=== PATIENT | male | born 1955 | race Caucasian/White ===

== ENCOUNTER 2023-05-12 10:21 | Inpatient (IN) | payer MEDICARE ==
[~2023-05-12] VITALS: Ht 182.9 cm; Wt 87.7 kg
[2023-05-12 12:58] LABS: HEMATOCRIT 47.4 % (42.0-52.0); HEMOGLOBIN 15.8 g/dl (13.5-17.5); MEAN CORPUSCULAR HGB CONC 33.3 g/dl (32.0-36.5); MEAN CORPUSCULAR VOLUME 90.1 fl (80.0-96.0); PLATELET COUNT, AUTOMATED 329 10^3/uL (150-450); RED BLOOD COUNT 5.26 10^6/uL (4.30-6.10); WHITE BLOOD COUNT 10.7 10^3/uL (4.0-10.0)
[2023-05-12 13:18] LABS: ETHYL ALCOHOL (ETHANOL) < 0.003 % (0.000-0.010)
[2023-05-12 13:20] LABS: ALKALINE PHOSPHATASE 81 U/L (46-116); ALT/SGPT 55 U/L (7.0-40); AST/SGOT 33 U/L (<34); BILIRUBIN,DIRECT 0.6 MG/DL (<0.4); BILIRUBIN,TOTAL 1.5 MG/DL (0.3-1.2); BLOOD UREA NITROGEN 29 MG/DL (9-23); CALCIUM LEVEL 9.9 MG/DL (8.3-10.6); CARBON DIOXIDE LEVEL 22 MMOL/L (20-31); CHLORIDE LEVEL 105 MMOL/L (98-107); GLOMERULAR FILTRATION RATE > 60.0 (>49); GLUCOSE, FASTING 158 MG/DL (74-106); POTASSIUM SERUM 4.6 MMOL/L (3.5-5.1); SALICYLATE LEVEL < 3.0 MG/DL (<30); SODIUM LEVEL 138 MMOL/L (136-145); TOTAL PROTEIN 7.5 G/DL (5.7-8.2)
[2023-05-12 13:23] LABS: THYROID STIMULATING HORMONE 1.406 uIU/ML (0.55-4.78)
[2023-05-12] MEDS ORDERED: MED REC IN PROGRESS XX SCH (15:35)
[2023-05-12] MEDS ORDERED: traZODone 50 MG TAB PO PRN (16:40)
[2023-05-12] MEDS ORDERED: MAALOX 30 ML SUSP *UDC PO PRN (16:40)
[2023-05-12] MEDS ORDERED: IBUPROFEN 400MG TAB PO PRN (16:40)
[2023-05-12] MEDS ORDERED: diphenhydrAMINE 25MG CAP PO PRN (16:40)
[2023-05-12] MEDS ORDERED: DEXTROSE 50% 50ML SYRINGE IV PRN (16:40)
[2023-05-12] MEDS ORDERED: GLUCOSE 4GM CHEW TABLET PO PRN (16:40)
[2023-05-12] MEDS ORDERED: MOM 30ML SUSPENSION UDC PO PRN (16:40)
[2023-05-12] MEDS ORDERED: GLUCAGON INJ 1MG VIAL SC PRN (16:40)
[2023-05-12] MEDS: INSULIN LISPRO (NovoLOG) PER UNIT SC SCH ×2 (17:30→21:00)
[2023-05-12 17:58] LABS: AMPHETAMINES LEVEL URINE NEGATIVE (NEGATIVE); BARBITURATES URINE NEGATIVE (NEGATIVE); COCAINE METABOLITE URINE NEGATIVE (NEGATIVE); METHADONE URINE NEGATIVE (NEGATIVE); OPIATES URINE NEGATIVE (NEGATIVE)
[2023-05-12 17:59] LABS: BENZODIAZEPINES URINE NEGATIVE (NEGATIVE); PHENCYCLIDINE URINE NEGATIVE (NEGATIVE)
[2023-05-12 18:02] LABS: CANNABINOIDS URINE POSITIVE (NEGATIVE)
[2023-05-12] MEDS ORDERED: SERTRALINE HCL 25 MG TABLET PO SCH (21:00)
[2023-05-13 06:57] VITALS: BP 128/64; TEMP 98.3; O2SAT 99
[2023-05-13] MEDS: INSULIN LISPRO (NovoLOG) PER UNIT SC SCH ×4 (06:59→21:00)
[2023-05-13] MEDS ORDERED: ATORVASTATIN 20 MG TAB PO SCH (09:00)
[2023-05-13] MEDS: NICOTINE 14 MG/24 HR TRANSDERMAL TD SCH (09:00)
[2023-05-13] MEDS ORDERED: JANU100T PO (09:57)
[2023-05-13] MEDS ORDERED: ROSU40TA4 PO (09:57)
[2023-05-13] MEDS ORDERED: LISI10TA22 PO (09:57)
[2023-05-13] MEDS ORDERED: SERT25TA21 PO (09:57)
[2023-05-13] MEDS ORDERED: METF-877 PO (09:57)
[2023-05-13] MEDS ORDERED: MED REC COMMENT (09:58)
[2023-05-13] MEDS ORDERED: HOME MED LIST COMPLETE! XX SCH (10:00)
[2023-05-13] MEDS: metFORMIN (GLUCOPHAGE) 1000MG TABLET PO SCH ×2 (10:29→17:21)
[2023-05-13] MEDS: ROSUVASTATIN 10 MG TAB (CRESTOR) PO SCH (10:29)
[2023-05-13] MEDS: SITagliptin 50 MG TAB (JANUVIA) PO SCH (10:49)
[2023-05-13 16:28] VITALS: BP 121/63; TEMP 98.7; O2SAT 99
[2023-05-13] MEDS: SERTRALINE HCL 25 MG TABLET PO SCH (21:20)
[2023-05-14 06:30] VITALS: BP 112/58; TEMP 98.9; O2SAT 97
[2023-05-14] MEDS: INSULIN LISPRO (NovoLOG) PER UNIT SC SCH ×4 (06:42→20:14)
[2023-05-14] MEDS: ROSUVASTATIN 10 MG TAB (CRESTOR) PO SCH (08:03)
[2023-05-14] MEDS: metFORMIN (GLUCOPHAGE) 1000MG TABLET PO SCH ×2 (08:03→17:10)
[2023-05-14] MEDS: SITagliptin 50 MG TAB (JANUVIA) PO SCH (08:03)
[2023-05-14] MEDS: NICOTINE 14 MG/24 HR TRANSDERMAL TD SCH (08:04)
[2023-05-14 16:31] VITALS: BP 106/60; TEMP 98.1; O2SAT 100
[2023-05-14] MEDS: ACETAMINOPHEN TAB 650MG DOSE (2X325MG) PO PRN (20:10)
[2023-05-14] MEDS: SERTRALINE HCL 25 MG TABLET PO SCH (20:10)
[2023-05-15 05:37] VITALS: BP 111/55; TEMP 98; O2SAT 99
[2023-05-15] MEDS: INSULIN LISPRO (NovoLOG) PER UNIT SC SCH ×4 (06:52→20:08)
[2023-05-15 08:35] VITALS: BP 144/74
[2023-05-15] MEDS: metFORMIN (GLUCOPHAGE) 1000MG TABLET PO SCH ×2 (08:36→17:00)
[2023-05-15] MEDS: SITagliptin 50 MG TAB (JANUVIA) PO SCH (08:36)
[2023-05-15] MEDS: ROSUVASTATIN 10 MG TAB (CRESTOR) PO SCH (08:36)
[2023-05-15] MEDS: NICOTINE 14 MG/24 HR TRANSDERMAL TD SCH (08:37)
[2023-05-15] MEDS: SERTRALINE HCL 25 MG TABLET PO SCH (20:08)
[2023-05-15] MEDS: QUEtiapine FUMARATE 25 MG TAB PO SCH (20:08)
[2023-05-16 06:18] VITALS: BP 144/80; TEMP 97.2; O2SAT 98
[2023-05-16] MEDS: INSULIN LISPRO (NovoLOG) PER UNIT SC SCH ×4 (06:38→20:08)
[2023-05-16] MEDS: metFORMIN (GLUCOPHAGE) 1000MG TABLET PO SCH ×2 (08:03→17:07)
[2023-05-16] MEDS: SITagliptin 50 MG TAB (JANUVIA) PO SCH (08:04)
[2023-05-16] MEDS: ROSUVASTATIN 10 MG TAB (CRESTOR) PO SCH (08:04)
[2023-05-16] MEDS: NICOTINE 14 MG/24 HR TRANSDERMAL TD SCH (08:08)
[2023-05-16 16:25] VITALS: BP 134/68; TEMP 98; O2SAT 100
[2023-05-16] MEDS: SERTRALINE HCL 25 MG TABLET PO SCH (20:08)
[2023-05-16] MEDS: QUEtiapine FUMARATE 25 MG TAB PO SCH (20:08)
[2023-05-17 06:30] VITALS: BP 130/59; TEMP 98; O2SAT 99
[2023-05-17] MEDS: INSULIN LISPRO (NovoLOG) PER UNIT SC SCH ×4 (06:34→20:11)
[2023-05-17] MEDS: ROSUVASTATIN 10 MG TAB (CRESTOR) PO SCH (07:46)
[2023-05-17] MEDS: metFORMIN (GLUCOPHAGE) 1000MG TABLET PO SCH ×2 (07:46→17:05)
[2023-05-17] MEDS: SITagliptin 50 MG TAB (JANUVIA) PO SCH (07:46)
[2023-05-17] MEDS: NICOTINE 14 MG/24 HR TRANSDERMAL TD SCH (07:50)
[2023-05-17] MEDS ORDERED: PILL CUTTER 1 EACH XX PRN (10:45)
[2023-05-17] MEDS: FAMOTIDINE 20 MG TAB PO SCH (10:48)
[2023-05-17 15:59] VITALS: BP 135/62; TEMP 98.3; O2SAT 100
[2023-05-17] MEDS: SERTRALINE HCL 25 MG TABLET PO SCH (20:09)
[2023-05-17] MEDS: QUEtiapine FUMARATE 25 MG TAB PO SCH (20:09)
[2023-05-18 06:33] VITALS: BP 134/67; TEMP 97.8; O2SAT 99
[2023-05-18] MEDS: INSULIN LISPRO (NovoLOG) PER UNIT SC SCH ×4 (06:34→20:22)
[2023-05-18] MEDS: ROSUVASTATIN 10 MG TAB (CRESTOR) PO SCH (07:46)
[2023-05-18] MEDS: metFORMIN (GLUCOPHAGE) 1000MG TABLET PO SCH ×2 (07:46→17:04)
[2023-05-18] MEDS: FAMOTIDINE 20 MG TAB PO SCH (07:46)
[2023-05-18] MEDS: SITagliptin 50 MG TAB (JANUVIA) PO SCH (07:46)
[2023-05-18] MEDS: NICOTINE 14 MG/24 HR TRANSDERMAL TD SCH (07:49)
[2023-05-18] MEDS ORDERED: NICOTINE 14 MG/24 HR TRANSDERMAL TD PRN (09:35)
[2023-05-18 16:17] VITALS: BP 150/69; TEMP 97.4; O2SAT 100
[2023-05-18] MEDS: SERTRALINE HCL 25 MG TABLET PO SCH (20:21)
[2023-05-18] MEDS: QUEtiapine FUMARATE 25 MG TAB PO SCH (20:21)
[2023-05-19 06:18] VITALS: BP 134/60; TEMP 97.3; O2SAT 99
[2023-05-19] MEDS: INSULIN LISPRO (NovoLOG) PER UNIT SC SCH ×4 (06:38→20:08)
[2023-05-19] MEDS: SITagliptin 50 MG TAB (JANUVIA) PO SCH (08:02)
[2023-05-19] MEDS: ROSUVASTATIN 10 MG TAB (CRESTOR) PO SCH (08:03)
[2023-05-19] MEDS: metFORMIN (GLUCOPHAGE) 1000MG TABLET PO SCH ×2 (08:03→17:05)
[2023-05-19] MEDS: FAMOTIDINE 20 MG TAB PO SCH (08:03)
[2023-05-19] MEDS: PILL CUTTER 1 EACH XX PRN (08:03)
[2023-05-19 18:07] VITALS: BP 148/65; TEMP 97.8
[2023-05-19] MEDS: SERTRALINE HCL 25 MG TABLET PO SCH (20:07)
[2023-05-19] MEDS: QUEtiapine FUMARATE 25 MG TAB PO SCH (20:08)
[2023-05-20 06:28] VITALS: BP 133/61; TEMP 97.7; O2SAT 98
[2023-05-20] MEDS: INSULIN LISPRO (NovoLOG) PER UNIT SC SCH ×4 (06:40→20:07)
[2023-05-20] MEDS: SITagliptin 50 MG TAB (JANUVIA) PO SCH (08:22)
[2023-05-20] MEDS: metFORMIN (GLUCOPHAGE) 1000MG TABLET PO SCH ×2 (08:23→17:06)
[2023-05-20 08:24] VITALS: BP 150/68
[2023-05-20] MEDS: ROSUVASTATIN 10 MG TAB (CRESTOR) PO SCH (08:26)
[2023-05-20] MEDS: FAMOTIDINE 20 MG TAB PO SCH (08:27)
[2023-05-20] MEDS: PILL CUTTER 1 EACH XX PRN (08:27)
[2023-05-20 17:59] VITALS: BP 136/70; TEMP 97.3; O2SAT 100
[2023-05-20] MEDS: QUEtiapine FUMARATE 25 MG TAB PO SCH (20:08)
[2023-05-20] MEDS: SERTRALINE HCL 25 MG TABLET PO SCH (20:08)
[2023-05-21 06:35] VITALS: BP 141/65; TEMP 97.8; O2SAT 98
[2023-05-21] MEDS: INSULIN LISPRO (NovoLOG) PER UNIT SC SCH ×4 (07:21→20:28)
[2023-05-21] MEDS: metFORMIN (GLUCOPHAGE) 1000MG TABLET PO SCH ×2 (08:01→17:06)
[2023-05-21] MEDS: ROSUVASTATIN 10 MG TAB (CRESTOR) PO SCH (08:01)
[2023-05-21] MEDS: SITagliptin 50 MG TAB (JANUVIA) PO SCH (08:02)
[2023-05-21] MEDS: FAMOTIDINE 20 MG TAB PO SCH (08:03)
[2023-05-21] MEDS ORDERED: LOPERAMIDE 2 MG CAPLET PO ONE (11:30)
[2023-05-21 16:20] VITALS: BP 162/72; TEMP 96.7; O2SAT 100
[2023-05-21] MEDS: SERTRALINE HCL 25 MG TABLET PO SCH (20:27)
[2023-05-21] MEDS: QUEtiapine FUMARATE 25 MG TAB PO SCH (20:27)
[2023-05-22] MEDS: LOPERAMIDE 2 MG CAPLET PO PRN ×2 (05:32→17:52)
[2023-05-22 06:24] VITALS: BP 136/62; TEMP 99.6; O2SAT 100
[2023-05-22] MEDS: INSULIN LISPRO (NovoLOG) PER UNIT SC SCH ×4 (06:34→20:06)
[2023-05-22] MEDS: ROSUVASTATIN 10 MG TAB (CRESTOR) PO SCH (07:43)
[2023-05-22] MEDS: metFORMIN (GLUCOPHAGE) 1000MG TABLET PO SCH ×2 (07:43→17:40)
[2023-05-22] MEDS: FAMOTIDINE 20 MG TAB PO SCH (07:44)
[2023-05-22] MEDS: SITagliptin 50 MG TAB (JANUVIA) PO SCH (07:44)
[2023-05-22 18:32] VITALS: BP 171/80; TEMP 97.5; O2SAT 99
[2023-05-22] MEDS: QUEtiapine FUMARATE 25 MG TAB PO SCH (20:03)
[2023-05-22] MEDS: SERTRALINE HCL 25 MG TABLET PO SCH (20:03)
[2023-05-23] MEDS: INSULIN LISPRO (NovoLOG) PER UNIT SC SCH ×4 (06:40→20:07)
[2023-05-23 07:02] VITALS: BP 128/65; TEMP 97.2; O2SAT 99
[2023-05-23 08:08] VITALS: BP 153/73
[2023-05-23] MEDS: ROSUVASTATIN 10 MG TAB (CRESTOR) PO SCH (08:08)
[2023-05-23] MEDS: LOPERAMIDE 2 MG CAPLET PO PRN (08:08)
[2023-05-23] MEDS: metFORMIN (GLUCOPHAGE) 1000MG TABLET PO SCH ×2 (08:08→17:01)
[2023-05-23 08:09] VITALS: BP 153/73
[2023-05-23] MEDS: PILL CUTTER 1 EACH XX PRN (08:09)
[2023-05-23] MEDS: SITagliptin 50 MG TAB (JANUVIA) PO SCH (08:09)
[2023-05-23] MEDS: FAMOTIDINE 20 MG TAB PO SCH (08:09)
[2023-05-23 13:25] LABS: IONIZED CALCIUM 5.3 MG/DL (4.5-5.3)
[2023-05-23 13:39] LABS: BASO # 0.1 10^3/uL (0.0-0.2); BASO % 0.8 % (0.0-1.0); EOS # 0.2 10^3/uL (0.0-0.5); EOS % 1.7 % (0.0-3.0); HEMOGLOBIN 14.5 g/dl (13.5-17.5); LYMPH # 2.5 10^3/uL (1.5-5.0); MEAN CORPUSCULAR HEMOGLOBIN 29.9 pg (27.0-33.0); MEAN CORPUSCULAR HGB CONC 32.2 g/dl (32.0-36.5); MEAN CORPUSCULAR VOLUME 92.8 fl (80.0-96.0); MONO # 0.7 10^3/uL (0.0-0.8); MONO % 7.7 % (2.0-8.0); NEUTROPHILS # 6.1 10^3/uL (1.5-8.5); NEUTROPHILS % 62.9 % (36.0-66.0); PLATELET COUNT, AUTOMATED 258 10^3/uL (150-450); RED BLOOD COUNT 4.85 10^6/uL (4.30-6.10); WHITE BLOOD COUNT 9.7 10^3/uL (4.0-10.0)
[2023-05-23 14:00] LABS: C REACTIVE PROTEIN QUANTITATIV < 0.40 MG/DL (<1.0)
[2023-05-23 14:02] LABS: ALBUMIN 3.8 G/DL (3.2-5.2); ALKALINE PHOSPHATASE 61 U/L (46-116); ALT/SGPT 49 U/L (7.0-40); AST/SGOT 29 U/L (<34); BILIRUBIN,TOTAL 0.5 MG/DL (0.3-1.2); BLOOD UREA NITROGEN 30 MG/DL (9-23); CALCIUM LEVEL 9.3 MG/DL (8.3-10.6); CARBON DIOXIDE LEVEL 18 MMOL/L (20-31); CHLORIDE LEVEL 112 MMOL/L (98-107); CREATININE FOR GFR 0.94 MG/DL (0.70-1.30); GLOMERULAR FILTRATION RATE > 60.0 (>49); GLUCOSE, FASTING 260 MG/DL (74-106); MAGNESIUM LEVEL 1.7 MG/DL (1.8-2.4); POTASSIUM SERUM 5.2 MMOL/L (3.5-5.1); SODIUM LEVEL 138 MMOL/L (136-145)
[2023-05-23 14:07] LABS: ERYTHROCYTE SEDIMENTATION RATE 18 mm/hr (0-20)
[2023-05-23] MEDS ORDERED: LOPERAMIDE 2 MG CAPLET PO PRN (14:10)
[2023-05-23 14:12] LABS: PROCALCITONIN <0.04 ng/ml
[2023-05-23] MEDS ORDERED: MAGNESIUM OXIDE 400MG TAB (MAG-OX) PO ONE (15:30)
[2023-05-23] MEDS ORDERED: PATIROMER SORBITEX CALCIUM 8.4 GM POWDER PACKET (VELTASSA) PO ONE (17:00)
[2023-05-23 18:53] VITALS: BP 132/95; TEMP 97.6
[2023-05-23] MEDS: SERTRALINE HCL 25 MG TABLET PO SCH (20:08)
[2023-05-23] MEDS: MAGNESIUM OXIDE 400MG TAB (MAG-OX) PO SCH (20:08)
[2023-05-23] MEDS: QUEtiapine FUMARATE 25 MG TAB PO SCH (20:08)
[2023-05-23] MEDS: SODIUM BICARBONATE 325 MG TAB PO SCH (20:08)
[2023-05-23 22:02] LABS: BLOOD UREA NITROGEN 34 MG/DL (9-23); CALCIUM LEVEL 9.8 MG/DL (8.3-10.6); CARBON DIOXIDE LEVEL 18 MMOL/L (20-31); CHLORIDE LEVEL 111 MMOL/L (98-107); CREATININE FOR GFR 1.08 MG/DL (0.70-1.30); GLOMERULAR FILTRATION RATE > 60.0 (>49); GLUCOSE, FASTING 174 MG/DL (74-106); MAGNESIUM LEVEL 1.7 MG/DL (1.8-2.4); POTASSIUM SERUM 4.6 MMOL/L (3.5-5.1); SODIUM LEVEL 137 MMOL/L (136-145)
[2023-05-24 06:08] VITALS: BP 154/80; TEMP 98.3; O2SAT 99
[2023-05-24] MEDS: INSULIN LISPRO (NovoLOG) PER UNIT SC SCH ×4 (06:30→20:07)
[2023-05-24] MEDS: SITagliptin 50 MG TAB (JANUVIA) PO SCH (08:37)
[2023-05-24] MEDS: metFORMIN (GLUCOPHAGE) 1000MG TABLET PO SCH ×2 (08:37→17:41)
[2023-05-24] MEDS: FAMOTIDINE 20 MG TAB PO SCH (08:38)
[2023-05-24] MEDS: SODIUM BICARBONATE 325 MG TAB PO SCH ×2 (08:38→20:10)
[2023-05-24] MEDS: MAGNESIUM OXIDE 400MG TAB (MAG-OX) PO SCH ×3 (08:39→20:10)
[2023-05-24] MEDS: ROSUVASTATIN 10 MG TAB (CRESTOR) PO SCH (08:39)
[2023-05-24] MEDS: PILL CUTTER 1 EACH XX PRN (08:39)
[2023-05-24 18:21] VITALS: BP 153/91; TEMP 97.1; O2SAT 100
[2023-05-24] MEDS: SERTRALINE HCL 25 MG TABLET PO SCH (20:10)
[2023-05-24] MEDS: QUEtiapine FUMARATE 25 MG TAB PO SCH (20:10)
[2023-05-25 06:26] VITALS: BP 129/64; TEMP 98.8; O2SAT 99
[2023-05-25] MEDS: INSULIN LISPRO (NovoLOG) PER UNIT SC SCH ×4 (06:36→21:00)
[2023-05-25] MEDS: SODIUM BICARBONATE 325 MG TAB PO SCH ×2 (08:50→20:08)
[2023-05-25] MEDS: metFORMIN (GLUCOPHAGE) 1000MG TABLET PO SCH ×2 (08:50→17:25)
[2023-05-25] MEDS: ROSUVASTATIN 10 MG TAB (CRESTOR) PO SCH (08:51)
[2023-05-25] MEDS: SITagliptin 50 MG TAB (JANUVIA) PO SCH (08:51)
[2023-05-25] MEDS: MAGNESIUM OXIDE 400MG TAB (MAG-OX) PO SCH ×3 (08:51→20:09)
[2023-05-25] MEDS: FAMOTIDINE 20 MG TAB PO SCH (08:54)
[2023-05-25 13:59] LABS: BLOOD UREA NITROGEN 28 MG/DL (9-23); CALCIUM LEVEL 9.1 MG/DL (8.3-10.6); CARBON DIOXIDE LEVEL 21 MMOL/L (20-31); CHLORIDE LEVEL 110 MMOL/L (98-107); CREATININE FOR GFR 0.85 MG/DL (0.70-1.30); GLOMERULAR FILTRATION RATE > 60.0 (>49); GLUCOSE, FASTING 168 MG/DL (74-106); MAGNESIUM LEVEL 1.9 MG/DL (1.8-2.4); POTASSIUM SERUM 4.9 MMOL/L (3.5-5.1); SODIUM LEVEL 139 MMOL/L (136-145)
[2023-05-25 18:00] VITALS: BP 151/70; TEMP 98.6; O2SAT 100
[2023-05-25] MEDS: SERTRALINE HCL 25 MG TABLET PO SCH (20:08)
[2023-05-25] MEDS: QUEtiapine FUMARATE 25 MG TAB PO SCH (20:09)
[2023-05-26 06:38] VITALS: BP 113/58; TEMP 97.9; O2SAT 99
[2023-05-26] MEDS: INSULIN LISPRO (NovoLOG) PER UNIT SC SCH ×4 (06:38→20:19)
[2023-05-26] MEDS: MAGNESIUM OXIDE 400MG TAB (MAG-OX) PO SCH ×3 (08:37→20:13)
[2023-05-26] MEDS: SITagliptin 50 MG TAB (JANUVIA) PO SCH (08:37)
[2023-05-26] MEDS: ROSUVASTATIN 10 MG TAB (CRESTOR) PO SCH (08:37)
[2023-05-26] MEDS: FAMOTIDINE 20 MG TAB PO SCH (08:37)
[2023-05-26] MEDS: metFORMIN (GLUCOPHAGE) 1000MG TABLET PO SCH ×2 (08:37→17:02)
[2023-05-26] MEDS: SODIUM BICARBONATE 325 MG TAB PO SCH ×2 (08:37→20:16)
[2023-05-26 18:17] VITALS: BP 146/79; TEMP 96.8; O2SAT 100
[2023-05-26] MEDS: SERTRALINE HCL 25 MG TABLET PO SCH (20:13)
[2023-05-26] MEDS: QUEtiapine FUMARATE 25 MG TAB PO SCH (20:13)
[2023-05-27] MEDS: INSULIN LISPRO (NovoLOG) PER UNIT SC SCH ×4 (06:35→20:00)
[2023-05-27 06:43] VITALS: BP 147/69; TEMP 98.3; O2SAT 100
[2023-05-27] MEDS: MAGNESIUM OXIDE 400MG TAB (MAG-OX) PO SCH ×3 (08:37→20:00)
[2023-05-27] MEDS: SITagliptin 50 MG TAB (JANUVIA) PO SCH (08:37)
[2023-05-27] MEDS: FAMOTIDINE 20 MG TAB PO SCH (08:38)
[2023-05-27] MEDS: SODIUM BICARBONATE 325 MG TAB PO SCH ×2 (08:38→19:59)
[2023-05-27] MEDS: ROSUVASTATIN 10 MG TAB (CRESTOR) PO SCH (08:38)
[2023-05-27] MEDS: metFORMIN (GLUCOPHAGE) 1000MG TABLET PO SCH ×2 (08:38→17:07)
[2023-05-27] MEDS: PILL CUTTER 1 EACH XX PRN (08:41)
[2023-05-27 16:10] VITALS: BP 126/70; TEMP 98; O2SAT 100
[2023-05-27] MEDS: SERTRALINE HCL 25 MG TABLET PO SCH (19:59)
[2023-05-27] MEDS: QUEtiapine FUMARATE 25 MG TAB PO SCH (20:00)
[2023-05-28] MEDS: INSULIN LISPRO (NovoLOG) PER UNIT SC SCH ×4 (06:30→20:10)
[2023-05-28 06:48] VITALS: BP 139/78; TEMP 97.3; O2SAT 96
[2023-05-28] MEDS: SODIUM BICARBONATE 325 MG TAB PO SCH ×2 (08:10→20:10)
[2023-05-28] MEDS: FAMOTIDINE 20 MG TAB PO SCH (08:11)
[2023-05-28] MEDS: SITagliptin 50 MG TAB (JANUVIA) PO SCH (08:11)
[2023-05-28] MEDS: metFORMIN (GLUCOPHAGE) 1000MG TABLET PO SCH ×2 (08:11→17:01)
[2023-05-28] MEDS: ROSUVASTATIN 10 MG TAB (CRESTOR) PO SCH (08:11)
[2023-05-28] MEDS: PILL CUTTER 1 EACH XX PRN (08:11)
[2023-05-28] MEDS: MAGNESIUM OXIDE 400MG TAB (MAG-OX) PO SCH ×3 (08:12→20:11)
[2023-05-28 16:09] VITALS: BP 154/69; TEMP 98.6; O2SAT 100
[2023-05-28 16:12] LABS: Chitobioside Carbohydrat (ACCA 6 units (0-90); Laminaribioside Carbohyd (ALCA 4 units (0-60); Mannobioside Carbohydrat (AMCA 14 units (0-100); Saccharomyces cerevisiae IgG A 23 units (0-50)
[2023-05-28] MEDS: SERTRALINE HCL 25 MG TABLET PO SCH (20:10)
[2023-05-28] MEDS: QUEtiapine FUMARATE 25 MG TAB PO SCH (20:11)
[2023-05-29 06:40] VITALS: BP 145/66; TEMP 98.9; O2SAT 99
[2023-05-29] MEDS: INSULIN LISPRO (NovoLOG) PER UNIT SC SCH ×4 (06:50→20:12)
[2023-05-29] MEDS: SITagliptin 50 MG TAB (JANUVIA) PO SCH (08:13)
[2023-05-29] MEDS: MAGNESIUM OXIDE 400MG TAB (MAG-OX) PO SCH ×3 (08:13→20:11)
[2023-05-29] MEDS: metFORMIN (GLUCOPHAGE) 1000MG TABLET PO SCH ×2 (08:13→17:05)
[2023-05-29] MEDS: ROSUVASTATIN 10 MG TAB (CRESTOR) PO SCH (08:13)
[2023-05-29] MEDS: SODIUM BICARBONATE 325 MG TAB PO SCH ×2 (08:14→20:10)
[2023-05-29] MEDS: PILL CUTTER 1 EACH XX PRN (08:14)
[2023-05-29] MEDS: FAMOTIDINE 20 MG TAB PO SCH (08:14)
[2023-05-29 18:01] VITALS: BP 149/74; TEMP 98.7; O2SAT 96
[2023-05-29] MEDS: QUEtiapine FUMARATE 25 MG TAB PO SCH (20:10)
[2023-05-29] MEDS: SERTRALINE HCL 25 MG TABLET PO SCH (20:10)
[2023-05-30 06:29] VITALS: BP 115/61; TEMP 97.5; O2SAT 98
[2023-05-30] MEDS: INSULIN LISPRO (NovoLOG) PER UNIT SC SCH ×4 (06:34→20:06)
[2023-05-30] MEDS: PILL CUTTER 1 EACH XX PRN (08:14)
[2023-05-30] MEDS: metFORMIN (GLUCOPHAGE) 1000MG TABLET PO SCH ×2 (08:14→17:10)
[2023-05-30] MEDS: ROSUVASTATIN 10 MG TAB (CRESTOR) PO SCH (08:14)
[2023-05-30] MEDS: MAGNESIUM OXIDE 400MG TAB (MAG-OX) PO SCH ×3 (08:15→20:06)
[2023-05-30] MEDS: FAMOTIDINE 20 MG TAB PO SCH (08:15)
[2023-05-30] MEDS: SITagliptin 50 MG TAB (JANUVIA) PO SCH (08:15)
[2023-05-30] MEDS: SODIUM BICARBONATE 325 MG TAB PO SCH ×2 (08:15→20:02)
[2023-05-30 16:28] VITALS: BP 144/65; TEMP 98.9; O2SAT 94
[2023-05-30] MEDS: SERTRALINE HCL 25 MG TABLET PO SCH (20:02)
[2023-05-30] MEDS: QUEtiapine FUMARATE 25 MG TAB PO SCH (20:02)
[2023-05-31] MEDS: INSULIN LISPRO (NovoLOG) PER UNIT SC SCH ×4 (06:34→21:00)
[2023-05-31 06:36] VITALS: BP 122/62; TEMP 97.8; O2SAT 99
[2023-05-31] MEDS: MAGNESIUM OXIDE 400MG TAB (MAG-OX) PO SCH ×3 (08:25→20:09)
[2023-05-31] MEDS: ROSUVASTATIN 10 MG TAB (CRESTOR) PO SCH (08:25)
[2023-05-31] MEDS: FAMOTIDINE 20 MG TAB PO SCH (08:25)
[2023-05-31] MEDS: metFORMIN (GLUCOPHAGE) 1000MG TABLET PO SCH ×2 (08:25→17:06)
[2023-05-31] MEDS: SITagliptin 50 MG TAB (JANUVIA) PO SCH (08:26)
[2023-05-31] MEDS: PILL CUTTER 1 EACH XX PRN (08:26)
[2023-05-31] MEDS: SODIUM BICARBONATE 325 MG TAB PO SCH ×2 (08:26→20:09)
[2023-05-31 16:10] VITALS: BP 139/64; TEMP 98.3; O2SAT 98
[2023-05-31] MEDS: QUEtiapine FUMARATE 25 MG TAB PO SCH (20:09)
[2023-05-31] MEDS: SERTRALINE HCL 25 MG TABLET PO SCH (20:09)
[2023-06-01 06:29] VITALS: BP 138/65; TEMP 97.9; O2SAT 98
[2023-06-01] MEDS: INSULIN LISPRO (NovoLOG) PER UNIT SC SCH ×4 (06:38→20:48)
[2023-06-01] MEDS: PILL CUTTER 1 EACH XX PRN (08:28)
[2023-06-01] MEDS: metFORMIN (GLUCOPHAGE) 1000MG TABLET PO SCH ×2 (08:28→17:06)
[2023-06-01] MEDS: FAMOTIDINE 20 MG TAB PO SCH (08:28)
[2023-06-01] MEDS: SODIUM BICARBONATE 325 MG TAB PO SCH ×2 (08:28→20:47)
[2023-06-01] MEDS: ROSUVASTATIN 10 MG TAB (CRESTOR) PO SCH (08:28)
[2023-06-01] MEDS: MAGNESIUM OXIDE 400MG TAB (MAG-OX) PO SCH ×3 (08:28→20:48)
[2023-06-01] MEDS: SITagliptin 50 MG TAB (JANUVIA) PO SCH (08:28)
[2023-06-01 15:25] VITALS: BP 150/70; TEMP 98.3; O2SAT 96
[2023-06-01] MEDS: QUEtiapine FUMARATE 25 MG TAB PO SCH (20:48)
[2023-06-01] MEDS: SERTRALINE HCL 25 MG TABLET PO SCH (20:48)
[2023-06-02 06:20] VITALS: BP 145/65; TEMP 96.9; O2SAT 99
[2023-06-02] MEDS: INSULIN LISPRO (NovoLOG) PER UNIT SC SCH ×4 (06:54→20:09)
[2023-06-02] MEDS: SITagliptin 50 MG TAB (JANUVIA) PO SCH (08:37)
[2023-06-02] MEDS: SODIUM BICARBONATE 325 MG TAB PO SCH ×2 (08:38→20:08)
[2023-06-02] MEDS: FAMOTIDINE 20 MG TAB PO SCH (08:38)
[2023-06-02] MEDS: PILL CUTTER 1 EACH XX PRN (08:38)
[2023-06-02] MEDS: metFORMIN (GLUCOPHAGE) 1000MG TABLET PO SCH ×2 (08:38→17:12)
[2023-06-02] MEDS: ROSUVASTATIN 10 MG TAB (CRESTOR) PO SCH (08:39)
[2023-06-02] MEDS: MAGNESIUM OXIDE 400MG TAB (MAG-OX) PO SCH ×3 (08:39→20:08)
[2023-06-02 18:16] VITALS: BP 150/80; TEMP 98.5; O2SAT 100
[2023-06-02] MEDS: QUEtiapine FUMARATE 25 MG TAB PO SCH (20:08)
[2023-06-02] MEDS: SERTRALINE HCL 25 MG TABLET PO SCH (20:08)
[2023-06-03 06:11] VITALS: BP 125/58; TEMP 97.4; O2SAT 99
[2023-06-03] MEDS: INSULIN LISPRO (NovoLOG) PER UNIT SC SCH ×4 (07:06→20:16)
[2023-06-03] MEDS: metFORMIN (GLUCOPHAGE) 1000MG TABLET PO SCH ×2 (08:14→17:03)
[2023-06-03] MEDS: MAGNESIUM OXIDE 400MG TAB (MAG-OX) PO SCH ×3 (08:14→20:13)
[2023-06-03] MEDS: PILL CUTTER 1 EACH XX PRN (08:15)
[2023-06-03] MEDS: ROSUVASTATIN 10 MG TAB (CRESTOR) PO SCH (08:15)
[2023-06-03] MEDS: FAMOTIDINE 20 MG TAB PO SCH (08:15)
[2023-06-03] MEDS: SITagliptin 50 MG TAB (JANUVIA) PO SCH (08:15)
[2023-06-03] MEDS: SODIUM BICARBONATE 325 MG TAB PO SCH ×2 (08:15→20:14)
[2023-06-03] MEDS: SERTRALINE HCL 25 MG TABLET PO SCH (11:58)
[2023-06-03 18:39] VITALS: BP 142/68; TEMP 98.2; O2SAT 100
[2023-06-03] MEDS: QUEtiapine FUMARATE 25 MG TAB PO SCH (20:14)
[2023-06-04 06:23] VITALS: BP 154/72; TEMP 97.1; O2SAT 98
[2023-06-04] MEDS: INSULIN LISPRO (NovoLOG) PER UNIT SC SCH ×4 (06:42→20:15)
[2023-06-04] MEDS: ROSUVASTATIN 10 MG TAB (CRESTOR) PO SCH (07:59)
[2023-06-04] MEDS: SODIUM BICARBONATE 325 MG TAB PO SCH ×2 (07:59→20:14)
[2023-06-04] MEDS: MAGNESIUM OXIDE 400MG TAB (MAG-OX) PO SCH ×3 (07:59→20:14)
[2023-06-04] MEDS: SERTRALINE HCL 25 MG TABLET PO SCH (08:00)
[2023-06-04] MEDS: metFORMIN (GLUCOPHAGE) 1000MG TABLET PO SCH ×2 (08:00→17:08)
[2023-06-04] MEDS: FAMOTIDINE 20 MG TAB PO SCH (08:00)
[2023-06-04] MEDS: SITagliptin 50 MG TAB (JANUVIA) PO SCH (08:00)
[2023-06-04 15:50] VITALS: BP 131/63; TEMP 97.1; O2SAT 100
[2023-06-04 15:51] VITALS: BP 137/82; TEMP 97.6; O2SAT 93
[2023-06-04] MEDS: QUEtiapine FUMARATE 25 MG TAB PO SCH (20:13)
[2023-06-05] MEDS: INSULIN LISPRO (NovoLOG) PER UNIT SC SCH ×5 (06:32→20:08)
[2023-06-05 06:33] VITALS: BP 141/68; TEMP 98.6; O2SAT 98
[2023-06-05] MEDS: FAMOTIDINE 20 MG TAB PO SCH (08:02)
[2023-06-05] MEDS: metFORMIN (GLUCOPHAGE) 1000MG TABLET PO SCH ×2 (08:02→17:25)
[2023-06-05] MEDS: ROSUVASTATIN 10 MG TAB (CRESTOR) PO SCH (08:02)
[2023-06-05] MEDS: MAGNESIUM OXIDE 400MG TAB (MAG-OX) PO SCH ×3 (08:02→20:05)
[2023-06-05] MEDS: SITagliptin 50 MG TAB (JANUVIA) PO SCH (08:03)
[2023-06-05] MEDS: SODIUM BICARBONATE 325 MG TAB PO SCH ×2 (08:03→20:05)
[2023-06-05] MEDS: PILL CUTTER 1 EACH XX PRN (08:03)
[2023-06-05] MEDS: SERTRALINE HCL 25 MG TABLET PO SCH (08:03)
[2023-06-05] MEDS ORDERED: FAMO20TA PO (10:45)
[2023-06-05] MEDS ORDERED: SITA50TAB PO (10:45)
[2023-06-05] MEDS ORDERED: MAGN400T2 PO (10:45)
[2023-06-05] MEDS ORDERED: METF10004 PO (10:45)
[2023-06-05] MEDS ORDERED: CRES10TA PO (10:45)
[2023-06-05] MEDS ORDERED: SERT25TA21 PO (10:45)
[2023-06-05] MEDS ORDERED: QUET1TAB17 PO (10:45)
[2023-06-05] MEDS ORDERED: SODI325T9 PO (10:45)
[2023-06-05 18:14] VITALS: BP 149/64; TEMP 98.6; O2SAT 98
[2023-06-05] MEDS: ACETAMINOPHEN TAB 650MG DOSE (2X325MG) PO PRN (18:51)
[2023-06-05] MEDS: QUEtiapine FUMARATE 25 MG TAB PO SCH (20:05)
[2023-06-06 06:24] VITALS: BP 158/72; TEMP 98.5; O2SAT 97
[2023-06-06] MEDS: INSULIN LISPRO (NovoLOG) PER UNIT SC SCH ×4 (06:42→20:28)
[2023-06-06] MEDS: metFORMIN (GLUCOPHAGE) 1000MG TABLET PO SCH ×2 (07:52→17:34)
[2023-06-06] MEDS: PILL CUTTER 1 EACH XX PRN (07:53)
[2023-06-06] MEDS: SITagliptin 50 MG TAB (JANUVIA) PO SCH (07:56)
[2023-06-06] MEDS: SODIUM BICARBONATE 325 MG TAB PO SCH ×2 (07:56→20:27)
[2023-06-06] MEDS: MAGNESIUM OXIDE 400MG TAB (MAG-OX) PO SCH ×3 (07:56→20:27)
[2023-06-06] MEDS: ROSUVASTATIN 10 MG TAB (CRESTOR) PO SCH (07:56)
[2023-06-06] MEDS: FAMOTIDINE 20 MG TAB PO SCH (07:56)
[2023-06-06] MEDS: SERTRALINE HCL 25 MG TABLET PO SCH (07:56)
[2023-06-06 16:16] VITALS: BP 143/70; TEMP 97.6; O2SAT 99
[2023-06-06] MEDS: FUROSEMIDE 20 MG TAB PO SCH (17:34)
[2023-06-06 20:23] VITALS: BP 122/66; TEMP 97.8; O2SAT 95
[2023-06-06] MEDS: QUEtiapine FUMARATE 25 MG TAB PO SCH (20:27)
[2023-06-07] MEDS: INSULIN LISPRO (NovoLOG) PER UNIT SC SCH ×4 (06:41→20:10)
[2023-06-07] MEDS: metFORMIN (GLUCOPHAGE) 1000MG TABLET PO SCH ×2 (07:55→17:12)
[2023-06-07] MEDS: SITagliptin 50 MG TAB (JANUVIA) PO SCH (08:00)
[2023-06-07] MEDS: ROSUVASTATIN 10 MG TAB (CRESTOR) PO SCH (08:00)
[2023-06-07] MEDS: SERTRALINE HCL 25 MG TABLET PO SCH (08:01)
[2023-06-07] MEDS: FAMOTIDINE 20 MG TAB PO SCH (08:02)
[2023-06-07] MEDS: FUROSEMIDE 20 MG TAB PO SCH (08:02)
[2023-06-07] MEDS: SODIUM BICARBONATE 325 MG TAB PO SCH ×2 (08:02→20:12)
[2023-06-07] MEDS: MAGNESIUM OXIDE 400MG TAB (MAG-OX) PO SCH ×3 (08:05→20:13)
[2023-06-07 18:04] VITALS: BP 151/67; TEMP 98.4; O2SAT 98
[2023-06-07] MEDS: QUEtiapine FUMARATE 25 MG TAB PO SCH (20:12)
[2023-06-08] MEDS: INSULIN LISPRO (NovoLOG) PER UNIT SC SCH ×4 (07:12→20:50)
[2023-06-08 07:20] VITALS: BP 155/78; TEMP 98.3; O2SAT 99
[2023-06-08] MEDS: MAGNESIUM OXIDE 400MG TAB (MAG-OX) PO SCH ×3 (08:08→20:29)
[2023-06-08] MEDS: SERTRALINE HCL 25 MG TABLET PO SCH (08:09)
[2023-06-08] MEDS: metFORMIN (GLUCOPHAGE) 1000MG TABLET PO SCH ×2 (08:09→17:29)
[2023-06-08] MEDS: ROSUVASTATIN 10 MG TAB (CRESTOR) PO SCH (08:09)
[2023-06-08] MEDS: SITagliptin 50 MG TAB (JANUVIA) PO SCH (08:09)
[2023-06-08] MEDS: SODIUM BICARBONATE 325 MG TAB PO SCH ×2 (08:09→20:29)
[2023-06-08] MEDS: FAMOTIDINE 20 MG TAB PO SCH (08:10)
[2023-06-08] MEDS: PILL CUTTER 1 EACH XX PRN (09:37)
[2023-06-08 15:08] VITALS: BP 126/63; TEMP 99.2; O2SAT 99
[2023-06-08 18:17] VITALS: BP 126/63; TEMP 99.2; O2SAT 99
[2023-06-08] MEDS: QUEtiapine FUMARATE 25 MG TAB PO SCH (20:29)
[2023-06-09 05:59] VITALS: BP 134/65; TEMP 98; O2SAT 99
[2023-06-09] MEDS: INSULIN LISPRO (NovoLOG) PER UNIT SC SCH (07:10)
[2023-06-09] MEDS: ROSUVASTATIN 10 MG TAB (CRESTOR) PO SCH (07:57)
[2023-06-09] MEDS: MAGNESIUM OXIDE 400MG TAB (MAG-OX) PO SCH (07:57)
[2023-06-09] MEDS: metFORMIN (GLUCOPHAGE) 1000MG TABLET PO SCH (07:58)
[2023-06-09] MEDS: SERTRALINE HCL 25 MG TABLET PO SCH (07:58)
[2023-06-09] MEDS: SITagliptin 50 MG TAB (JANUVIA) PO SCH (08:00)
[2023-06-09] MEDS: SODIUM BICARBONATE 325 MG TAB PO SCH (08:00)
[2023-06-09] MEDS: FAMOTIDINE 20 MG TAB PO SCH (08:00)
== END 2023-06-09 10:57 | disposition home or self-care (01) | DRG 881 ==
LOC: M ED 10:21 → M ED INP 16:37 → M PSY 20:41
PROVIDERS: ADMIT Student in an Organized Health Care Education/Training Program; ATTEND Student in an Organized Health Care Education/Training Program
DX: F32.A Depression, unspecified (principal); Z59.01 Sheltered homelessness; E87.20 Acidosis, unspecified; F43.21 Adjustment disorder with depressed mood; F12.10 Cannabis abuse, uncomplicated; Z91.51 Personal history of suicidal behavior; E11.9 Type 2 diabetes mellitus without complications; I10 Essential (primary) hypertension; J43.9 Emphysema, unspecified; E78.5 Hyperlipidemia, unspecified; F17.210 Nicotine dependence, cigarettes, uncomplicated; Z79.84 Long term (current) use of oral hypoglycemic drugs; Z79.899 Other long term (current) drug therapy; M79.89 Other specified soft tissue disorders; R19.7 Diarrhea, unspecified; E87.5 Hyperkalemia; S61.512A Laceration without foreign body of left wrist, initial encounter; X78.9XXA Intentional self-harm by unspecified sharp object, initial encounter; Y93.89 Activity, other specified; Y99.8 Other external cause status; Y92.89 Other specified places as the place of occurrence of the external cause